=== PATIENT | female | born 1960 | race Caucasian/White ===

== ENCOUNTER 2017-06-19 00:04 | Emergency (ER) | payer MEDICARE, OTHER, MEDICAID ==
[~2017-06-19] VITALS: Ht 162.6 cm; Wt 78.0 kg
[~2017-06-19 00:04] MED LIST: AMLO-147 PO; DICY20TA59 PO; ERGO500037 PO; LORA0.5T PO; LORA1TAB PO; NAPR-688 PO; OMEG-135 PO; RANI300T PO
[2017-06-19 00:22] VITALS: Ht 162.6 cm; Wt 78.0 kg
--- NOTE | 2017-06-19 03:34 | ERD ---
ER Documentation Chief Complaint Date/Time DATE: 06/19/17 TIME: 03:32 Chief Complaint c/o lower back pain, radiating to both legs which causes tingling x1 month HPI 57-year-old female presents here in emergency department for complaints of lower back pain for 1 month now, denies any recent injury. Patient is complaining of lower back pain throbbing pain 6/10 scale, as was upon movement, accompanied with tingling sensation and numbness and tingling in lower extremities. Patient describes the pain is intermittent. Patient did not take any medications to help with symptoms. Patient denies any incontinence. Patient denies any hematuria or dysuria. Patient denies any fever chills. ROS All systems reviewed and are negative except as per history of present illness. Medications Home Meds Active Scripts Lorazepam* (Lorazepam*) 0.5 Mg Tablet, 0.5 MG PO Q8 Y for ANXIETY, #10 TAB Prov:PRETTY PENN DO 09/10/15 Reported Medications Ranitidine Hcl* (Ranitidine Hcl*) 300 Mg Tablet, 300 MG PO DAILY, #30 09/10/15 Amlodipine Besylate* (Amlodipine Besylate*) 10 Mg Tablet, 10 MG PO DAILY 09/10/15 Naproxen* (Naproxen*) 500 Mg Tablet, 500 MG PO BID 09/10/15 Ergocalciferol (Vitamin D2) (VITAMIN D2) 50,000 Unit Capsule, 63566 UNIT PO Q7D 09/10/15 Dicyclomine Hcl* (Bentyl*) 20 Mg Tablet, 20 MG PO BID 09/10/15 Lorazepam* (Lorazepam*) 1 Mg Tablet, 1 MG PO DAILY 09/10/15 Fish Oil* (Fish Oil*) 1,000 Mg Cap, 1000 MG PO BID, CAP 12/29/14 Allergies Allergies: Coded Allergies: No Known Allergy (Verified , 12/29/14) PMhx/Soc History of Surgery: No Anesthesia Reaction: No Hx Neurological Disorder: Yes (neuropathy) Hx Respiratory Disorders: No Hx Psychiatric Problems: Yes (anxiety) Hx Miscellaneous Medical Probl: Yes (back injury) Hx Alcohol Use: No Hx Substance Use: No Hx Tobacco Use: No Smoking Status: Never smoker FmHx Family History: No coronary disease, No diabetes, No other Physical Exam Vitals Vital Signs Date Time Temp Pulse Resp B/P Pulse Ox O2 Delivery O2 Flow Rate FiO2 06/19/17 00:22 98.1 74 20 145/86 98 Physical Exam GENERAL: The patient is well developed and appropriate for usual state of health, in no apparent distress. CHEST: Clear to auscultation bilaterally. There are no rales, wheezes or rhonchi. HEART: Regular rate and rhythm. No murmurs, clicks, rubs or gallops. No S3 or S4. ABDOMEN: Soft, nontender and nondistended. Good bowel sounds. No rebound or guarding. No gross peritonitis. No gross organomegaly or masses. No Alfred sign or McBurney point tenderness. BACK: No midline or flank tenderness. EXTREMITIES: Equal pulses bilaterally. There is no peripheral clubbing, cyanosis or edema. No focal swelling or erythema. Full range of motion. Grossly neurovascularly intact. NEURO: Alert and oriented. Cranial nerves 2-12 intact. Motor strength in all 4 extremities with 5/5 strength. Sensation grossly intact. Normal speech and gait. SKIN: There is no apparent rash or petechia. The skin is warm and dry. HEMATOLOGIC AND LYMPHATIC: There is no evidence of excessive bruising or lymphedema. No gross cervical, axillary, or inguinal lymphadenopathy. Results 24 hrs PROCEDURE: CT Lumbar Spine. CLINICAL INDICATION: Back pain TECHNIQUE: The study was performed on a multidetector CT scanner. Spiral axial 1 mm images were obtained through the lumbar spine and reformatted at 2.5 mm slice thickness. Sagittal and coronal reformations were created from the raw axial data. The images were reviewed on a PACS workstation. The administered radiation dose was CTDI vol = 20.81 mGy, DLP = 688.28 mGy-cm. One or more the following dose reduction techniques were utilized: Automated exposure control, adjustment of the mA and / or kV according to patient's size, or use of iterative reconstruction technique. COMPARISON: No prior studies are available for comparison. FINDINGS: The vertebral bodies demonstrate normal height, alignment and osseous mineralization. Calcification in abdominal aorta and iliac arteries. T12-L1: The disc and neuroforamina are unremarkable. L1-L2: The disc and neuroforamina are unremarkable. L2-L3: Facet hypertrophy L3-L4: Facet hypertrophy L4-L5: Mild diffuse disc bulge, facet and ligamentum flavum hypertrophy and mild to moderate central spinal stenosis and mild left foraminal stenosis. L5-S1: Mild diffuse disc bulge, mild to moderate left posterior disc protrusion with impression on the left anterior thecal sac and left S1 nerve root with mild central spinal stenosis and moderate bilateral foraminal stenosis. Mild degenerative changes at sacroiliac joints. IMPRESSION: Degenerative changes. Mild to moderate central spinal stenosis and mild left foraminal stenosis at L4-5. Mild to moderate left posterior disc protrusion, mild central spinal stenosis and moderate bilateral foraminal stenosis at L5- S1. Please see above. RPTAT: HJES .Michael Brizuela MD, MD Date Time Electronically viewed and signed by .Michael Brizuela MD, MD on 06/19/2017 03:58 .S/ CC: CHIQUIS CARDONA [employer] Procedures/MDM Medical Decision Making: Patient's pain is most likely consistent with a back pain caused by degenerative disc disease possible sciatica. There is no suspicion for neurovascular compromise. Patient has intact sensation and circulation of the affected extremity and distal extremities. No incontinence, no suspicion for cauda equina syndrome, no saddle anesthesia, no symptoms of any acute bacterial infection, no symptoms of any perirectal abscesses, pilonidal cyst.There is low suspicion for septic arthritis. Patient does not have any fever. No symptoms of any aortic dissection or aortic aneurysm. Radiology exam not showing any fractures or dislocation Disposition: Home. Patient is given prescription for ibuprofen for mild to moderate pain, Gabapentin. Patient was advised to avoid heavy lifting , apply warm compresses on affected area. Patient was advised that if symptoms are worse , numbness, tingling, high fever, unable to move joint, worsening symptoms, to return to emergency department immediately. Otherwise, patient is advised to follow up with the primary care doctor in 5-7 days for reevaluation of symptoms. Disclaimer: Inadvertent spelling and grammatical errors are likely due to EHR/ dictation software use and do not reflect on the overall quality of patient care. Also, please note that the electronic time recorded on this note does not necessarily reflect the actual time of the patient encounter. Departure Diagnosis: Primary Impression: Back pain Back pain location: low back pain Chronicity: acute Back pain laterality: bilateral Sciatica presence: with sciatica Sciatica laterality: bilateral sciatica Qualified Code: M54.42 - Acute bilateral low back pain with bilateral sciatica Condition: Stable Patient Instructions: Back Pain W/ Sciatica Additional Instructions: Patient is given prescription for ibuprofen for mild to moderate pain, Gabapentin. Patient was advised to avoid heavy lifting , apply warm compresses on affected area. Patient was advised that if symptoms are worse, numbness, tingling, high fever, unable to move joint, worsening symptoms, to return to emergency department immediately. Otherwise, patient is advised to follow up with the primary care doctor in 5-7 days for reevaluation of symptoms. CHIQUIS CARDONA NP Jun 19, 2017 03:34
--- NOTE | 2017-06-19 03:59 | RADRPT ---
PROCEDURE: CT Lumbar Spine. CLINICAL INDICATION: Back pain TECHNIQUE: The study was performed on a multidetector CT scanner. Spiral axial 1 mm images were o btained through the lumbar spine and reformatted at 2.5 mm slice thickness. Sagittal and coronal ref ormations were created from the raw axial data. The images were reviewed on a PACS workstation. The administered radiation dose was CTDI vol = 20.81 mGy, DLP = 688.28 mGy-cm. One or more the following dose reduction techniques were utilized: Automated exposure control, adjus tment of the mA and / or kV according to patient's size, or use of iterative reconstruction techniqu e. COMPARISON: No prior studies are available for comparison. FINDINGS: The vertebral bodies demonstrate normal height, alignment and osseous mineralization. Calcification in abdominal aorta and iliac arteries. T12-L1: The disc and neuroforamina are unremarkable. L1-L2: The disc and neuroforamina are unremarkable. L2-L3: Facet hypertrophy L3-L4: Facet hypertrophy L4-L5: Mild diffuse disc bulge, facet and ligamentum flavum hypertrophy and mild to moderate central spinal stenosis and mild left foraminal stenosis. L5-S1: Mild diffuse disc bulge, mild to moderate left posterior disc protrusion with impression on t he left anterior thecal sac and left S1 nerve root with mild central spinal stenosis and moderate bi lateral foraminal stenosis. Mild degenerative changes at sacroiliac joints. IMPRESSION: Degenerative changes. Mild to moderate central spinal stenosis and mild left foraminal stenosis at L 4-5. Mild to moderate left posterior disc protrusion, mild central spinal stenosis and moderate bila teral foraminal stenosis at L5-S1. Please see above. RPTAT: HJES .Michael Brizuela MD, MD Date Time Electronically viewed and signed by .Michael Brizuela MD, MD on 06/19/2017 03:58 .S/
[2017-06-19] MEDS ORDERED: GABA300C16 PO (04:16)
[2017-06-19] MEDS ORDERED: IBUP400T22 PO (04:16)
[2017-06-19 04:28] VITALS: BP 153/72; PULSE 74; RESP 20
== END 2017-06-19 04:28 | disposition home or self-care (01) ==
LOC: FTE 00:04
DX: M54.42 Lumbago with sciatica, left side (principal)
CPT/HCPCS: 72131